=== PATIENT | male | born 1975 | race Caucasian/White ===

== ENCOUNTER 2018-01-12 13:32 | Emergency (ER) | payer OTHER ==
[~2018-01-12] VITALS: Ht 180.3 cm; Wt 88.5 kg
[~2018-01-12 13:32] MED LIST: CEFDINIR300 MG PO; DEPO-TESTO100 MG/1 M; IBUPROFEN 800800 MG PO; PHENERGAN-CODE120 ML PO; VALTREX 500 MG500 M1; ZPAK
[2018-01-12] MEDS ORDERED: ASPIR 8181 MG PO (13:42)
[2018-01-12] MEDS ORDERED: PERCOCET 7.5-31 EAC1 PO (14:30)
[2018-01-12] MEDS ORDERED: CLEOCIN HCL150 M1 PO (14:30)
[2018-01-12] MEDS ORDERED: SSD CREAM 1% 5050 GM TOP (14:30)
[2018-01-12 14:52] VITALS: BP 139/80
== END 2018-01-12 14:56 | disposition home or self-care (01) ==
LOC: M.ERS 13:32
DX: T23.202A Burn of second degree of left hand, unspecified site, initial encounter (principal); T31.0 Burns involving less than 10% of body surface; Z88.0 Allergy status to penicillin; X16.XXXA Contact with hot heating appliances, radiators and pipes, initial encounter; Y93.89 Activity, other specified; Y92.89 Other specified places as the place of occurrence of the external cause; Y99.8 Other external cause status